=== PATIENT | male | born 1995 | race Caucasian/White ===

== ENCOUNTER 2023-10-08 10:14 | Emergency (ER) | payer OTHER ==
[~2023-10-08] VITALS: Ht 172.7 cm; Wt 100.0 kg
[2023-10-08 10:23] VITALS: O2SAT 99
[2023-10-08 10:45] LABS: BASOPHILS % 0.9 % (0.0-2.0); EOSINOPHILS % 2.3 % (0.0-5.0); HEMATOCRIT. 46.7 % (42.0-52.0); HEMOGLOBIN. 15.5 g/dL (14.0-18.0); LYMPHOCYTES % 18.2 % (20.0-50.0); MEAN CORPUSCULAR HEMOGLOBIN 30.7 pg (28.0-32.0); MEAN CORPUSCULAR HGB CONC 33.2 g/dL (31.0-37.0); MEAN CORPUSCULAR VOLUME 92.4 fL (80.0-94.0); MEAN PLATELET VOLUME 8.1 fl (7.4-10.4); MONOCYTES % 6.1 % (2.0-8.0); NEUTROPHILS % 72.5 % (40.0-76.0); PLATELET 296 x1000/uL (130-400); RED BLOOD CELL COUNT 5.06 mill/uL (4.7-6.1); RED CELL DISTRIBUTION WIDTH 15.4 % (11.6-14.6); WHITE BLOOD COUNT 8.3 x1000/uL (4.5-11.0)
[2023-10-08 10:57] LABS: CHLORIDE 105 mEq/L (98-107); SODIUM 135 mEq/L (136-145)
[2023-10-08 10:58] LABS: CALCIUM 9.7 mg/dL (8.7-10.4); CARBON DIOXIDE 24 mEq/L (21-32)
[2023-10-08 11:03] LABS: CREATININE 0.8 mg/dL (0.6-1.3); GLUCOSE 92 mg/dL (70-105); UREA NITROGEN BLOOD 7 mg/dL (9-23)
[2023-10-08 11:05] LABS: ALANINE AMINOTRANSFERASE 34 IU/L (10-49); ALBUMIN 4.6 g/dL (3.2-4.8); ASPARTATE AMINOTRANSFERASE 19 IU/L (<34); BILIRUBIN TOTAL 0.4 mg/dL (0.1-1.0); PROTEIN TOTAL 7.2 g/dL (6.0-8.3)
[2023-10-08 11:10] LABS: BILIRUBIN DIRECT < 0.1 mg/dL (<=3.0)
[2023-10-08] MEDS ORDERED: ONDANSETRON 4MG ODT PO STA (11:12)
[2023-10-08] MEDS ORDERED: MAGNESIUM/ALUMINUM HYDROXIDE/SIMETHICONE 30ML UDC PO STA (11:12)
[2023-10-08] MEDS ORDERED: ACETAMINOPHEN 500MG TABLET PO ONE (11:15)
[2023-10-08] MEDS ORDERED: MAG355OR21 MT (12:08)
[2023-10-08] MEDS ORDERED: FAMO-135 MT (12:08)
[2023-10-08 12:58] VITALS: BP 133/78; PULSE 99; RESP 18; TEMP 36.94740; O2SAT 99
[2023-10-08] MEDS: ACETAMINOPHEN 500MG TABLET PO NR (12:58)
[2023-10-08] MEDS: MAGNESIUM/ALUMINUM HYDROXIDE/SIMETHICONE 30ML UDC PO NR (12:58)
[2023-10-08] MEDS: FAMOTIDINE 20MG TABLET PO SCH (12:58)
[2023-10-08] MEDS: ONDANSETRON 4MG ODT PO NR (12:58)
== END 2023-10-08 13:14 | disposition home or self-care (01) ==
LOC: ER 10:14
DX: K29.70 Gastritis, unspecified, without bleeding (principal); Z98.890 Other specified postprocedural states
CPT/HCPCS: 99284; 80076; 80048; 85025; 86850; 86900; 86901; 36415; Q0162